=== PATIENT | male | born 1945 | race Caucasian/White ===

== ENCOUNTER 2021-06-28 13:59 | Inpatient (IN) | payer MEDICARE, OTHER ==
[~2021-06-28] VITALS: Ht 172.7 cm; Wt 66.2 kg
[2021-06-28] MEDS ORDERED: ALBUTEROL SULFATE 2.5 MG/3 ML NEBU NEB ONE (14:30)
[2021-06-28] MEDS ORDERED: BENZONATATE 100 MG CAPSULE PO ONE (14:30)
[2021-06-28] MEDS ORDERED: BENZONATATE 100 MG CAPSULE ONE (14:47)
[2021-06-28] MEDS ORDERED: LORAZEPAM 2 MG/1 ML VIAL IV ONE ×2 (15:00→16:15)
[2021-06-28] MEDS ORDERED: LORAZEPAM 2 MG/1 ML VIAL ONE ×2 (15:07→16:31)
[2021-06-28 15:11] LABS: HEMATOCRIT 41.2 % (36.7-47.1); MEAN CORPUSCULAR HEMOGLOBIN 27.6 uug (23.8-33.4); MEAN CORPUSCULAR VOLUME 84.9 fL (73.0-96.2); PLATELET COUNT (AUTO) 229 K/uL (152-348)
[2021-06-28] MEDS ORDERED: MULT-594 PO (15:16)
[2021-06-28] MEDS ORDERED: ALPR0.255 PO (15:16)
[2021-06-28] MEDS ORDERED: TRAZ-257 PO (15:16)
[2021-06-28] MEDS ORDERED: SERT100T PO (15:16)
[2021-06-28] MEDS ORDERED: LEVO25TA9 PO (15:16)
[2021-06-28] MEDS ORDERED: ALBU18HF2 IH (15:16)
[2021-06-28] MEDS ORDERED: ALBUTEROL SULFATE 2.5 MG/3 ML NEBU ONE (15:25)
[2021-06-28 15:26] LABS: ETHANOL < 3 MG/DL (0-0)
[2021-06-28] MEDS ORDERED: CEFTRIAXONE 1 G in IV DEXTROSE 5% 50 ML IV ONE (15:30)
[2021-06-28] MEDS ORDERED: AZITHROMYCIN IV 500 MG in IV DEXTROSE 5% 250 ML IV ONE (15:30)
[2021-06-28 15:32] LABS: ALANINE AMINOTRANSFERASE 20 U/L (16-63); ALKALINE PHOSPHATASE 77 U/L (50-136); ASPARTATE AMINOTRANSFERASE 31 U/L (15-37); BILIRUBIN,DIRECT 0.3 mg/dL (0.0-0.2); BILIRUBIN,TOTAL 4.9 mg/dL (0.2-1.0); CHLORIDE 102 mmol/L (98-107); CREATININE 0.9 mg/dL (0.6-1.3); POTASSIUM 3.8 mmol/L (3.5-5.1); TOTAL PROTEIN, SERUM 4.9 g/dL (6.4-8.2); UREA NITROGEN, BLOOD 21 mg/dL (7-18)
[2021-06-28 15:33] LABS: ACETAMINOPHEN < 2.0 ug/mL (10-30); CARBON DIOXIDE < 5 mmol/L (21-32); GLUCOSE 42 mg/dL (74-106)
[2021-06-28 15:40] LABS: THYROID STIMULATING HORMONE 3.876 mIU/mL (0.358-3.740)
[2021-06-28] MEDS ORDERED: AZITHROMYCIN 500MG/ D5W 250ML IVPB **ER PYXIS ONLY IV ONE (15:44)
[2021-06-28] MEDS ORDERED: DEXTROSE 50% 50 ML DISP.SYRIN IV ONE (15:45)
[2021-06-28] MEDS ORDERED: DEXTROSE 50% 50 ML DISP.SYRIN ONE (15:45)
[2021-06-28] MEDS ORDERED: CEFTRIAXONE /D5W 50ML IVPB **ER PYXIS IV ONE (15:45)
[2021-06-28 15:58] LABS: VALPROIC ACID < 3 ug/mL (50-100)
--- NOTE | 2021-06-28 16:00 | NUR ---
pt resting, family members at bedside, on O2 via nc, 4 litre, 100% sat.
[2021-06-28] MEDS ORDERED: SWABABLE VALVE TRANSFER SET EA MC ONE (16:26)
[2021-06-28] MEDS ORDERED: IOHEXOL 300MG/ML 100 ML INFUS..BTL ONE (16:26)
[2021-06-28] MEDS ORDERED: IV NORMAL SALINE 250 ML IV ONE (16:26)
[2021-06-28 18:37] LABS: CARBON DIOXIDE 27 mmol/L (21-32); CHLORIDE 104 mmol/L (98-107); GLUCOSE 206 mg/dL (74-106); POTASSIUM 3.8 mmol/L (3.5-5.1); UREA NITROGEN, BLOOD 17 mg/dL (7-18)
--- NOTE | 2021-06-28 19:51 | NUR ---
Report given to Cece ALVAREZ Tele.
[2021-06-28] MEDS ORDERED: MAGNESIUM HYDROXIDE 30 ML LIQUID UDC PO PRN (20:15)
[2021-06-28] MEDS ORDERED: ONDANSETRON 4 MG/2 ML VIAL IV PRN (20:15)
[2021-06-28] MEDS ORDERED: ACETAMINOPHEN 325 MG TABLET PO PRN (20:15)
[2021-06-28] MEDS ORDERED: Z GUARD REMEDY PASTE 57 GM TUBE TOP PRN (20:15)
[2021-06-28] MEDS ORDERED: ALBUTEROL SULFATE 8 GM HFA.AER.AD IH PRN (20:15)
[2021-06-28 21:00] VITALS: BP 115/75
[2021-06-28] MEDS ORDERED: levoFLOXacin 500 MG/D5W 100 ML ONE (21:01)
[2021-06-28] MEDS: TRAZODONE 100 MG TABLET PO SCH (21:08)
[2021-06-28] MEDS: methylPREDNISolone SOD SUCC 40 MG/ML VIAL IV SCH (21:13)
[2021-06-28] MEDS: levoFLOXacin 500 MG/D5W 500 MG in PREMIXED 1 EACH IV SCH (21:14)
[2021-06-28] MEDS ORDERED: ALBUTEROL SULFATE 2.5 MG/3 ML NEBU NEB PRN (21:45)
[2021-06-29 00:05] VITALS: BP 120/64
--- NOTE | 2021-06-29 00:11 | NUR ---
Received a 76 yr old male from ER with admitting diagnosis of COPD Exacerbation. VSS. AAOx3-4 with some periods of being forgetful at times. On 2L via nasal cannula, pulse ox 95%. No respiratory distress noted. Skin intact but some bruising on bilateral arms. #[id number] forearm heplock flushed and patent. Patient on levaquin IV and solumedrol. Denies any pain nor any discomfort. Hx of anxiety and COPD. No behavioral issues noted so far. Will monitor patient. Voiding in urinal but sometimes gets incontinent. Wear a diaper.
[2021-06-29] MEDS: LORAZEPAM 2 MG/1 ML VIAL IV PRN ×2 (01:13→09:24)
[2021-06-29] MEDS: ALBUTEROL SULFATE 2.5 MG/3 ML NEBU NEB PRN ×2 (01:23→20:25)
[2021-06-29] MEDS: IPRATROPIUM BROMIDE 0.5 MG/2.5 ML NEBU NEB PRN ×3 (01:23→20:24)
--- NOTE | 2021-06-29 01:38 | NUR ---
patient gets so confused and wanted to go home. Gets OOB and very agitated. Ativan 1 mg IV given as ordered. Trying to remove oxygen and breathing treatment. Assisted to chair and asked to relax. VSS.Will monitor patient.
[2021-06-29] MEDS ORDERED: HALOPERIDOL LACTATE 5 MG/1 ML VIAL IM ONE (02:30)
[2021-06-29] MEDS ORDERED: HALOPERIDOL LACTATE 5 MG/1 ML VIAL ONE (02:53)
--- NOTE | 2021-06-29 02:54 | NUR ---
Dr Bolden made aware of patient's agitation and behavior. Patient wanted to leave, put his clothes on, security came and talked to him but patient still confused. Haldol 2.5 mg IM ordered. Patient calm and quiet right now. Haldol put on hold at this time. Will monitor for any aggressive behavior.
[2021-06-29 04:00] VITALS: BP 97/66
[2021-06-29] MEDS: methylPREDNISolone SOD SUCC 40 MG/ML VIAL IV SCH ×3 (05:55→21:57)
[2021-06-29] MEDS: LEVOTHYROXINE SODIUM 25 MCG TABLET PO SCH (06:13)
[2021-06-29] MEDS: PANTOPRAZOLE SODIUM 40 MG TABLET.DR PO SCH (06:13)
[2021-06-29 06:37] LABS: HEMATOCRIT 37.1 % (36.7-47.1); MEAN CORPUSCULAR HEMOGLOBIN 27.2 uug (23.8-33.4); PLATELET COUNT (AUTO) 210 K/uL (152-348)
[2021-06-29 06:58] LABS: CREATININE 1.1 mg/dL (0.6-1.3); POTASSIUM 4.3 mmol/L (3.5-5.1)
[2021-06-29 07:01] LABS: MAGNESIUM 2.2 mg/dL (1.8-2.4); PHOSPHOROUS 3.7 mg/dL (2.5-4.9)
[2021-06-29] MEDS: MULTIVITAMINS,THERAPEUTIC TABLET PO SCH (09:11)
[2021-06-29] MEDS: NICOTINE 14 MG/24HR PATCH TD SCH (09:11)
[2021-06-29 12:00] VITALS: BP 99/72
[2021-06-29] MEDS ORDERED: LORAZEPAM 2 MG/1 ML VIAL IV ONE (12:45)
--- NOTE | 2021-06-29 12:57 | NUR ---
Patient is getting agitated Natalie Parham NP ordered for ativan IV 0.5 mg one time dose. Family is still with the patient.
[2021-06-29] MEDS: MEGESTROL ACETATE 20 MG TABLET PO SCH ×2 (13:49→17:29)
[2021-06-29 16:00] VITALS: BP_SYST 137; BP_SYST 97; BP_DIAS 61; BP_DIAS 65
--- NOTE | 2021-06-29 19:45 | NUR ---
Received pt sitting on a chair, verbally responsive, able to make needs known. On oxygen at 2LPM, no signs of respiratory distress noted. Denies any pain or discomfort. Safety measures initiated, call light within reach.
[2021-06-29 20:09] VITALS: BP 106/71
[2021-06-29] MEDS: TRAZODONE 100 MG TABLET PO SCH (20:16)
[2021-06-29] MEDS: TEMAZEPAM 15 MG CAPSULE PO PRN (21:32)
[2021-06-29] MEDS: levoFLOXacin 500 MG/D5W 500 MG in PREMIXED 1 EACH IV SCH (21:34)
[2021-06-30] VITALS: BP 109/77
[2021-06-30] MEDS: LORAZEPAM 2 MG/1 ML VIAL IV PRN ×2 (04:07→12:20)
[2021-06-30 04:09] VITALS: BP 105/70
[2021-06-30] MEDS: methylPREDNISolone SOD SUCC 40 MG/ML VIAL IV SCH ×3 (06:02→21:02)
[2021-06-30] MEDS: LEVOTHYROXINE SODIUM 25 MCG TABLET PO SCH (06:02)
[2021-06-30] MEDS: PANTOPRAZOLE SODIUM 40 MG TABLET.DR PO SCH (06:02)
[2021-06-30 06:30] LABS: HEMATOCRIT 39.1 % (36.7-47.1); MEAN CORPUSCULAR HEMOGLOBIN 27.1 uug (23.8-33.4); MEAN CORPUSCULAR VOLUME 85.3 fL (73.0-96.2); PLATELET COUNT (AUTO) 193 K/uL (152-348)
--- NOTE | 2021-06-30 06:33 | NUR ---
Slept through the night. Tolerated medications well. NSR on tele at 70/min. Pt woke up around 0400, agitated and confused, getting out of bed and wanting to go home. Reorientation done, repositioned properly in bed. Ativan 1mg PRN administered and tolerated well by the pt. Pt currently in bed, awake and calm. All needs attended to and met. Safety measures in place.
[2021-06-30 06:46] LABS: CREATININE 1.1 mg/dL (0.6-1.3); POTASSIUM 4.5 mmol/L (3.5-5.1)
[2021-06-30 07:19] LABS: THYROID STIMULATING HORMONE 0.463 mIU/mL (0.358-3.740)
[2021-06-30] MEDS: NICOTINE 14 MG/24HR PATCH TD SCH (08:28)
[2021-06-30] MEDS: MULTIVITAMINS,THERAPEUTIC TABLET PO SCH (08:28)
[2021-06-30] MEDS: MEGESTROL ACETATE 20 MG TABLET PO SCH ×2 (08:28→16:45)
--- NOTE | 2021-06-30 08:30 | NUR ---
PATIENT SEEN BY THE PHYSICAL THERAPIST FOR AMBULATION IN THE HALLWAY WITH THE FRONT WHEEL WALKER WITH FAIR ENDURANCE WAS SOMEWHAT SHORT OF BREATH AFTER THE WALKING AND WAS PLACED ON SUPPLEMENTAL O2 AT 2L/M BY N/C
--- NOTE | 2021-06-30 09:40 | NUR ---
CALLED DR MANSFIELD OFFICE AND LEFT HER A VOICE MESSAGE RE PATIENT NEEDS PSYCH CONSULT I ALSO FAXED THE FACE SHEET TO [facility] AND NOTIFIED THE [facility] NURSE KYUNG.
--- NOTE | 2021-06-30 09:44 | NUR ---
UP REMOVED HIS GOULD AND WALKING UNSURE OF HIS DESTINATION ALERT BUT DISORIENTED ASSISTED BACK INTO HIS ROOM AND SEATED HIM ON THE CHAIR AND O2 REAPPLIED PATIENT ENCOURAGED TO CALL FOR HELP TO PREVENT FALL HE HAS EXPRESSED UNDERSTANDING AT THIS TIME BUT WILL CONTINUE TO OBSERVE AND PROVIDE SAFE AND THERAPEUTIC ENVIRONMENT AT ALL TIMES. Addendum: 06/30/21 at 1204 by PRIYANK BARROSO RN ERROR PATIENT HAS NO GOULD HE REMOVED HIS O2 CANULA
[2021-06-30 12:00] VITALS: BP 132/76
--- NOTE | 2021-06-30 12:20 | NUR ---
PATIENT IS GETTING AGITATED ATTEMPTING TO LEAVE DESPITE THE FACT THAT HIS DAUGHTER AND ARE BOTH HERE AND VISITING UNABLE TO REDIRECT MEDICATED WITH ATIVAN ORDERED MADE COMFORTABLE WILL CONTINUE TO OBSERVE.
[2021-06-30] MEDS: FERROUS SULFATE 325 MG TABEC PO SCH (13:25)
--- NOTE | 2021-06-30 15:15 | NUR ---
DR CASTILLO HERE TO SEE AND EXAMINE PATIENT SPOKE WITH PATIENTS DAUGHTER AND AT LENGTH WITH NO NEW ORDERS AT THIS TIME.
[2021-06-30 16:30] VITALS: BP 110/81
--- NOTE | 2021-06-30 18:00 | NUR ---
SEEN BY BHAVANA ANXIOUS TO GO HOME BHAVANA SPOKE WITH PATIENT AND HIS FAMILY AND ENCOURAGED HIM TO STAY TONITE IN ORDER TO BE ABLE TO CONTINUE HIS ANTIBIOTICS AND HOS STEROIDS PATIENT IS NOT AGREEING TO THIS BUT FOR NOW HE WILL STAY FOR HIS ANTIBIOTICS TONITE.
[2021-06-30] MEDS: IPRATROPIUM BROMIDE 0.5 MG/2.5 ML NEBU NEB PRN (19:22)
[2021-06-30] MEDS: ALBUTEROL SULFATE 2.5 MG/3 ML NEBU NEB PRN (19:23)
--- NOTE | 2021-06-30 19:30 | NUR ---
Received pt in bed, awake and verbally responsive. LYTTON. No signs of acute distress. Denies any pain or discomfort. NSR on tele. Discussed plan of care with family at bedside. Family and Pt agreeable. Per , no VS to be checked after 1999. MD aware. Safety measures initiated, call light within reach.
[2021-06-30] MEDS: TRAZODONE 100 MG TABLET PO SCH (20:28)
[2021-06-30] MEDS: SENNOSIDES 1 TABLET PO SCH (20:28)
[2021-06-30 21:02] VITALS: BP 114/77
[2021-06-30] MEDS: levoFLOXacin 500 MG/D5W 500 MG in PREMIXED 1 EACH IV SCH (21:02)
[2021-06-30] MEDS: TEMAZEPAM 15 MG CAPSULE PO PRN (22:44)
[2021-07-01 00:06] VITALS: BP 127/84
[2021-07-01] MEDS: methylPREDNISolone SOD SUCC 40 MG/ML VIAL IV SCH ×2 (05:48→20:56)
[2021-07-01] MEDS: LEVOTHYROXINE SODIUM 25 MCG TABLET PO SCH (06:05)
[2021-07-01] MEDS: PANTOPRAZOLE SODIUM 40 MG TABLET.DR PO SCH (06:05)
--- NOTE | 2021-07-01 06:09 | NUR ---
Pt slept intermittently through the night, no significant change in condition noted. Due medications administered and tolerated well. Assisted with hygiene and repositioning in bed as needed. Safety measures maintained at all times. All needs attended to and met.
[2021-07-01 06:35] LABS: HEMATOCRIT 40.2 % (36.7-47.1); MEAN CORPUSCULAR HEMOGLOBIN 27.3 uug (23.8-33.4); MEAN CORPUSCULAR VOLUME 85.6 fL (73.0-96.2); PLATELET COUNT (AUTO) 208 K/uL (152-348)
[2021-07-01 06:50] LABS: POTASSIUM 4.6 mmol/L (3.5-5.1)
--- NOTE | 2021-07-01 07:30 | NUR ---
PATIENT IS AWAKE ON THE CHAIR AWAKE ALERT TO SELF BUT IS CONFUSED AND DISORIENTED NEEDING CONSTANT REDIRECTION ALL NEEDS ANTICIPATED AND SATISFIED.REMAIN ON O2 WITH NO SHORTNESS OF BREATH AT THIS TIME TELE IS SR MADE COMFORTABLE WILL CONTINUE TO OBSERVE.
[2021-07-01] MEDS: MULTIVITAMINS,THERAPEUTIC TABLET PO SCH (08:26)
[2021-07-01] MEDS: NICOTINE 14 MG/24HR PATCH TD SCH (08:27)
[2021-07-01] MEDS: MEGESTROL ACETATE 20 MG TABLET PO SCH ×2 (08:27→16:18)
[2021-07-01] MEDS: FERROUS SULFATE 325 MG TABEC PO SCH (08:27)
[2021-07-01] MEDS: BACITRACIN/POLYMYXIN B OINT 15 GM TUBE TOP SCH (09:12)
--- NOTE | 2021-07-01 10:25 | NUR ---
LEWIS HERE AND SEEN PATIENT WITH NO NEW ORDERS AT THIS TIME.
[2021-07-01] MEDS: LORAZEPAM 2 MG/1 ML VIAL IV PRN (10:28)
--- NOTE | 2021-07-01 10:32 | NUR ---
FAMILY AT THE BEDSIDE AND STATED THAT PATIENT IS GETTING MORE AGITATED AND REQUESTED FOR HIM TO GET SOME ATIVAN ORDERED ATIVAN GIVEN AT 1028 PATIENT IS CURRENTLY SITTING UP ON THE CHAIR IN HIS ROOM ALERT TO SELF BUT VERY CONFUSED WILL CONTINUE TO OBSERVE.
--- NOTE | 2021-07-01 11:00 | NUR ---
SEEN BY THE PHYSICAL THERAPY FOR AMBULATION WITH THE FRONT WHEEL WALKER WITH GOOD ENDURANCE AND ASSISTED BACK TO BED.
[2021-07-01 11:53] VITALS: BP 114/80
[2021-07-01] MEDS ORDERED: ALBUTEROL SULFATE 2.5 MG/3 ML NEBU NEB PRN (14:58)
[2021-07-01 15:56] VITALS: BP 124/76
--- NOTE | 2021-07-01 18:00 | NUR ---
RESTING ON THE CHAIR WITH O2 REMOVES OFF AND ON WITH NO SHORTNESS OF BREATH AT THIS TIME WILL CONTINUE TO OBSERVE
[2021-07-01 20:06] VITALS: BP 116/85
[2021-07-01] MEDS: TEMAZEPAM 15 MG CAPSULE PO PRN (20:56)
[2021-07-01] MEDS: TRAZODONE 100 MG TABLET PO SCH (20:56)
[2021-07-01] MEDS: SENNOSIDES 1 TABLET PO SCH (20:56)
--- NOTE | 2021-07-01 21:00 | NUR ---
Patient in bed, alert and verbally responsive. Patient is pleasant and cooperative with care, but has poor safety judgment and forgetful. Patient received due medications. Fall and safety precautions observed. Will continue to monitor patient.
[2021-07-01] MEDS: levoFLOXacin 500 MG/D5W 500 MG in PREMIXED 1 EACH IV SCH (21:01)
[2021-07-02] MEDS: LEVOTHYROXINE SODIUM 25 MCG TABLET PO SCH (06:02)
[2021-07-02] MEDS: PANTOPRAZOLE SODIUM 40 MG TABLET.DR PO SCH (06:02)
[2021-07-02 06:30] LABS: HEMATOCRIT 43.6 % (36.7-47.1); MEAN CORPUSCULAR HEMOGLOBIN 27.1 uug (23.8-33.4); MEAN CORPUSCULAR VOLUME 85.1 fL (73.0-96.2); PLATELET COUNT (AUTO) 209 K/uL (152-348)
--- NOTE | 2021-07-02 06:30 | NUR ---
Patient in bed, alert and responsive. Received due meds. All needs attended. Patient with episodes of impulsiveness. Fall and safety precautions closely observed.
[2021-07-02 06:42] LABS: POTASSIUM 4.4 mmol/L (3.5-5.1)
[2021-07-02 07:04] LABS: MAGNESIUM 2.3 mg/dL (1.8-2.4); PHOSPHOROUS 3.9 mg/dL (2.5-4.9)
--- NOTE | 2021-07-02 07:30 | NUR ---
RECEIVED PATIENT IN BED AWAKE ALERT SOMEWHAT DISORIENTED COOPERATIVE ALL NEEDS ANTICIPATED AND SATISFIED HE IS ON O2 AT 2L/M WITH NO SOB AT THIS TIME TELE IS SR CALL LIGHTS AND ALL HIS PERSONAL BELONGINGS ARE WITHIN EASY REACH MADE COMFORTABLE AND WILL CONTINUE TO OBSERVE.
[2021-07-02] MEDS: methylPREDNISolone SOD SUCC 40 MG/ML VIAL IV SCH ×2 (08:34→20:58)
[2021-07-02] MEDS: MEGESTROL ACETATE 20 MG TABLET PO SCH ×2 (08:34→17:05)
[2021-07-02] MEDS: NICOTINE 14 MG/24HR PATCH TD SCH (08:34)
[2021-07-02] MEDS: FERROUS SULFATE 325 MG TABEC PO SCH (08:34)
[2021-07-02] MEDS: MULTIVITAMINS,THERAPEUTIC TABLET PO SCH (08:34)
[2021-07-02] MEDS: BACITRACIN/POLYMYXIN B OINT 15 GM TUBE TOP SCH (08:35)
[2021-07-02 09:53] LABS: ABG BASE EXCESS 0.2 mmol/L; ABG HCO3 24.5 mmol/L; ABG PCO2 38.6 mmHg (35.0-45.0); ABG PO2 69.5 mmHg (75.0-100.0); ABG SITE RIGHT BRACHIAL; ABG TOTAL HEMOGLOBIN 15.1 G/dL (13.5-18.0); COHb 1.3 % (0.5-1.5); MetHb 0.2 % (0.0-1.5); O2Hb 93.1 % (94.0-97.0); VENT MODE ROOM AIR
[2021-07-02] MEDS: LORAZEPAM 2 MG/1 ML VIAL IV PRN ×2 (10:28→23:52)
--- NOTE | 2021-07-02 10:28 | NUR ---
getting agitated and very confused at this time unable to redirect medicated with ativan as ordered made comfortable will continue to observe.
[2021-07-02 11:42] VITALS: BP 124/86
--- NOTE | 2021-07-02 14:00 | NUR ---
PATIENT SEEN AND EXAMINED BY JEANINE COON WITH NO NEW ORDERS HE IS SITTING UP ON THE CHAIR WITH HIS AT HIS BEDSIDE NOT IN DISTRESS AT THIS TIME.
[2021-07-02 15:30] VITALS: BP 114/82
--- NOTE | 2021-07-02 18:00 | NUR ---
WAS IN BED TAKING A NAP FOR ABOUT 2 HOURS BUT ASSISTED INTO THE CHAIR FOR DINNER FED SELF WITH SET UP WITH FAIR APPETITE CALM AND COOPERATIVE AT THIS TIME WILL CONTINUE TO OBSERVE.
[2021-07-02 20:25] LABS: *OCCULT BLOOD STOOL NEGATIVE (NEGATIVE)
[2021-07-02] MEDS: TRAZODONE 100 MG TABLET PO SCH (20:55)
[2021-07-02] MEDS: SENNOSIDES 1 TABLET PO SCH (20:58)
[2021-07-02] MEDS: TEMAZEPAM 15 MG CAPSULE PO PRN (20:59)
--- NOTE | 2021-07-02 20:59 | NUR ---
PATIENT IS AWAKE AND STATED NOT SLEEPY SO RESTORIL GIVEN ORDERED MADE COMFORTABLE IN BED WILL CONTINUE TO OBSERVE.
[2021-07-02] MEDS: levoFLOXacin 500 MG/D5W 500 MG in PREMIXED 1 EACH IV SCH (21:06)
[2021-07-02] MEDS: IPRATROPIUM BROMIDE 0.5 MG/2.5 ML NEBU NEB PRN (21:12)
[2021-07-02 22:21] VITALS: BP 118/81
--- NOTE | 2021-07-02 23:52 | NUR ---
PATIENT IS STILL AWAKE NOT SLEEPING TRYING TO GET OUT OF BED SEEN TRYING TO HUB LEAD SOMETHING FROM THE FLOOR STRETCHING OVER THE SIDE RAILS UNABLE TO REDIRECT AT RISKS FOR FALL MEDICATED WITH ATIVAN ORDERED WILL CONTINUE TO OBSERVE.
--- NOTE | 2021-07-03 01:33 | NUR ---
AWAKE NOTED INCONTINENT OF URINE PJ CHANGED KEPT CLEAN AND DRY ENCOURAGED TO GET SOME SLEEP.
[2021-07-03 04:21] VITALS: BP 110/64
[2021-07-03] MEDS: LEVOTHYROXINE SODIUM 25 MCG TABLET PO SCH (06:01)
[2021-07-03] MEDS: PANTOPRAZOLE SODIUM 40 MG TABLET.DR PO SCH (06:01)
--- NOTE | 2021-07-03 06:25 | NUR ---
PATIENT IS AWAKE AT THIS TIME AND ASSISTED INTO THE CHAIR ALERT AND VERBALLY RESPONSIVE BUT REMAINS DISORIENTED ON O2 WITH NO SOB CALL LIGHTS WITHIN EASY REACH MADE COMFORTABLE WILL CONTINUE TO OBSERVE.
[2021-07-03 07:17] LABS: HEMATOCRIT 44.6 % (36.7-47.1); MEAN CORPUSCULAR HEMOGLOBIN 27.4 uug (23.8-33.4); MEAN CORPUSCULAR VOLUME 85.5 fL (73.0-96.2); PLATELET COUNT (AUTO) 203 K/uL (152-348)
[2021-07-03 07:40] LABS: CREATININE 1.1 mg/dL (0.6-1.3); POTASSIUM 4.7 mmol/L (3.5-5.1)
[2021-07-03 08:40] VITALS: BP 117/57
[2021-07-03] MEDS ORDERED: methylPREDNISolone SOD SUCC 40 MG/ML VIAL IV SCH (09:00)
[2021-07-03] MEDS: MULTIVITAMINS,THERAPEUTIC TABLET PO SCH (09:04)
[2021-07-03] MEDS: MEGESTROL ACETATE 20 MG TABLET PO SCH (09:04)
[2021-07-03] MEDS: NICOTINE 14 MG/24HR PATCH TD SCH (09:04)
[2021-07-03] MEDS: FERROUS SULFATE 325 MG TABEC PO SCH (09:04)
[2021-07-03] MEDS: BACITRACIN/POLYMYXIN B OINT 15 GM TUBE TOP SCH (09:06)
[2021-07-03 11:42] VITALS: BP 100/69
[2021-07-03] MEDS ORDERED: LEVO500T90 PO (11:49)
[2021-07-03] MEDS ORDERED: ALPR0.255 PO (11:49)
[2021-07-03] MEDS ORDERED: PRED20TA PO (11:49)
[2021-07-03] MEDS: LORAZEPAM 2 MG/1 ML VIAL IV PRN (12:27)
--- NOTE | 2021-07-03 12:30 | NUR ---
PT WAS FEELING ANXIOUS AND AT BEDSIDE REQUESTED ATIVAN. WENT IN TO ADMINISTER BUT SAID HE WAS FEELING BETTER AND DOES NOT WANT IT AT THIS TIME. 1MG WASTED IN PYXIS AND ANOTHER 1 MG WASTED IN TRASH. MEDICATION NOT GIVEN TO PT.
--- NOTE | 2021-07-03 12:55 | NUR ---
RECEIVED CHANGE OF SHIFT REPORT. PT RESTING IN CHAIR AT BEDSIDE. PT AWARE TO CALL FOR HELP WHEN GETTING UP. PT HAS SCRATCHES ON KEERTHI LOWER ARMS. PT ON TELE MONITOR, NSR, PT O2 DEPENDANT, FALL RISK MEASURES IN PLACE. LAST BM 07/03. WILL CONTINUE TO MONITOR.
--- NOTE | 2021-07-03 14:40 | NUR ---
PT DISCHARGED WITH ALL BELONGINGS, PT AMBULATORY WITH ASSISTANCE, TAKEN HOME VIA PRIVATE CAR WITH . PT HAS SCRATCHES ON KEERTHI LOWER ARMS AND SKIN TEARS, PHOTOS TAKEN AND IN CHART. PT AND EDUCATED ON WOUND CARE AND VERBALIZED UNDERSTANDING. PT ON 2L O2 VIA NC. VITALS STABLE. EXIT CARE AND EDUCATION INFORMATION GIVEN REGARDING DIAGNOSIS AND FOLLOW UP APPT.
[2021-07-04 17:05] LABS: *IMMUNOGLOBULIN G, SERUM 1115; IMMUNOGLOBULIN A, SERUM 346; IMMUNOGLOBULIN M, SERUM 50
[2021-07-04 17:06] LABS: ALBUMIN 3.3
[2021-07-04 17:07] LABS: ALPHA-1-GLOBULIN 0.3; ALPHA-2-GLOBULIN 0.9; BETA GLOBULIN 1.2; GAMMA GLOBULIN 0.8; M-SPIKE Not Observed
[2021-07-04 17:08] LABS: GLOBULIN, TOTAL 3.3
== END 2021-07-03 14:25 | disposition home health service (06) | DRG 177 ==
LOC: ER 13:59 → MEDSURG3 20:00 → TELE3 21:30
PROVIDERS: ADMIT Nurse Practitioner Acute Care; ATTEND Nurse Practitioner Family
DX: J15.6 Pneumonia due to other Gram-negative bacteria (principal); J96.21 Acute and chronic respiratory failure with hypoxia; G93.41 Metabolic encephalopathy; J44.1 Chronic obstructive pulmonary disease with (acute) exacerbation; J90 Pleural effusion, not elsewhere classified; J98.11 Atelectasis; F05 Delirium due to known physiological condition; J91.8 Pleural effusion in other conditions classified elsewhere; J44.0 Chronic obstructive pulmonary disease with (acute) lower respiratory infection; F17.210 Nicotine dependence, cigarettes, uncomplicated; D64.9 Anemia, unspecified; E03.9 Hypothyroidism, unspecified; F39 Unspecified mood [affective] disorder; F41.9 Anxiety disorder, unspecified; G47.00 Insomnia, unspecified; Z71.6 Tobacco abuse counseling; F03.90 Unspecified dementia, unspecified severity, without behavioral disturbance, psychotic disturbance, mood disturbance, and anxiety; E04.1 Nontoxic single thyroid nodule; Z79.890 Hormone replacement therapy; Z80.8 Family history of malignant neoplasm of other organs or systems; Z99.81 Dependence on supplemental oxygen; D72.829 Elevated white blood cell count, unspecified; Z20.822 Contact with and (suspected) exposure to COVID-19
CPT/HCPCS: 36415; 36600; 70030-TC; 71045; 71275; 80164; 82747; 82784; 83550; 83605; 83735; 84100; 84155; 84165; 84443; 85014; 85025; 85730; 86334; 86480; 86850; 86900; 86901; 87040; 93005; 94640; 94664; 97161; A4663; G0378; G0480; J0456; J0696; J1630; J1956; J2060; J2920; J3490; J3590; J7040; J7050; Q9967

== ENCOUNTER 2021-08-03 11:55 | Emergency (ER) | payer OTHER ==
[~2021-08-03] VITALS: Ht 170.2 cm; Wt 59.9 kg
[~2021-08-03 11:55] MED LIST: ALBU18HF2 IH; ALPR0.255 PO; LEVO25TA9 PO; LEVO500T90 PO; MULT-594 PO; PRED20TA PO; SERT100T PO; TRAZ-257 PO
--- NOTE | 2021-08-03 12:00 | NUR ---
Patient brought in by [facility] because he slipped out of his wheelchair and landing on the floor
--- NOTE | 2021-08-03 12:05 | NUR ---
at bedside for assessment
[2021-08-03 12:41] LABS: HEMATOCRIT 41.4 % (36.7-47.1); MEAN CORPUSCULAR HEMOGLOBIN 28.8 uug (23.8-33.4); MEAN CORPUSCULAR VOLUME 87.2 fL (73.0-96.2); PLATELET COUNT (AUTO) 194 K/uL (152-348)
[2021-08-03 12:48] LABS: BILIRUBIN,DIRECT 0.2 mg/dL (0.0-0.2); BILIRUBIN,TOTAL 0.8 mg/dL (0.2-1.0); CREATININE 0.8 mg/dL (0.6-1.3); POTASSIUM 5.1 mmol/L (3.5-5.1); TOTAL PROTEIN, SERUM 7.3 g/dL (6.4-8.2)
[2021-08-03] MEDS ORDERED: ARIP5TAB10 PO (13:24)
[2021-08-03] MEDS ORDERED: SERT25TA PO (13:24)
[2021-08-03] MEDS ORDERED: LEVO75TA7 PO (13:24)
[2021-08-03] MEDS ORDERED: ZOLP5TAB2 PO (13:24)
--- NOTE | 2021-08-03 14:48 | NUR ---
PT WAS D/C'd TO HOME AFTER DR CANNON EVALUATION. D/C INSTRUCTIONS GIVEN TO THE PT AND TO HIS BY DR CANNON.
[2021-08-03 14:49] VITALS: BP 126/79
== END 2021-08-03 14:49 | disposition home or self-care (01) ==
LOC: ER 11:55
DX: Z04.3 Encounter for examination and observation following other accident (principal); M54.5 Low back pain; M54.2 Cervicalgia; Z87.01 Personal history of pneumonia (recurrent); Z99.3 Dependence on wheelchair; R91.8 Other nonspecific abnormal finding of lung field; M48.02 Spinal stenosis, cervical region; M48.061 Spinal stenosis, lumbar region without neurogenic claudication; F17.200 Nicotine dependence, unspecified, uncomplicated; J44.9 Chronic obstructive pulmonary disease, unspecified; F32.9 Major depressive disorder, single episode, unspecified; F41.9 Anxiety disorder, unspecified; J90 Pleural effusion, not elsewhere classified; K80.20 Calculus of gallbladder without cholecystitis without obstruction; E04.1 Nontoxic single thyroid nodule; Z79.890 Hormone replacement therapy
CPT/HCPCS: 36415; 70450; 72125; 72131; 85025; 85730; A4663

== ENCOUNTER 2022-05-09 00:42 | Inpatient (IN) | payer OTHER ==
[~2022-05-09] VITALS: Ht 175.3 cm; Wt 65.8 kg
[~2022-05-09 00:42] MED LIST changes: +ARIP5TAB10 PO; -LEVO25TA9 PO; -LEVO500T90 PO; +LEVO75TA7 PO; -PRED20TA PO; -SERT100T PO; +SERT25TA PO; -TRAZ-257 PO; +ZOLP5TAB2 PO
--- NOTE | 2022-05-09 01:05 | NUR ---
BIB [facility] for c/o SOB. Brought in on 15L NRM, titrated to 2L NC, satting 94%. Pt has hx of COPD. Denies chest pain. Able to make needs known. Acute distress noted. RT called to administer nebulizer treatment.
[2022-05-09 01:15] LABS: HEMATOCRIT 37.7 % (36.7-47.1); MEAN CORPUSCULAR HEMOGLOBIN 27.7 uug (23.8-33.4); MEAN CORPUSCULAR VOLUME 84.2 fL (73.0-96.2); PLATELET COUNT (AUTO) 216 K/uL (152-348)
[2022-05-09] MEDS ORDERED: ALBUTEROL SULFATE 2.5 MG/3 ML NEBU NEB ONE (01:15)
[2022-05-09] MEDS ORDERED: ALBUTEROL SULFATE 2.5 MG/3 ML NEBU ONE (01:15)
--- NOTE | 2022-05-09 01:23 | NUR ---
RT at bedside administering breathing treatment. Pt tolerating well.
[2022-05-09] MEDS ORDERED: FAMO-132 PO (01:29)
[2022-05-09] MEDS ORDERED: MAGN400O6 PO (01:29)
[2022-05-09] MEDS ORDERED: LORA2VIA33 PO (01:29)
[2022-05-09] MEDS ORDERED: DOCU100C36 PO (01:29)
[2022-05-09] MEDS ORDERED: HYDR-3974 PO (01:29)
[2022-05-09] MEDS ORDERED: NICO-780 TD (01:29)
[2022-05-09] MEDS ORDERED: ACET160E36 PO (01:29)
[2022-05-09] MEDS ORDERED: AZITHROMYCIN IV 500 MG in IV DEXTROSE 5% 250 ML IV ONE (01:30)
[2022-05-09] MEDS ORDERED: CEFTRIAXONE 1 G in IV DEXTROSE 5% 50 ML IV ONE (01:30)
--- NOTE | 2022-05-09 01:40 | NUR ---
[facility] called to page Dr. Marc
--- NOTE | 2022-05-09 01:42 | NUR ---
SPOKE WITH MEME, STATES THAT PT WAS STAYING AT [facility].
[2022-05-09 01:47] LABS: ALANINE AMINOTRANSFERASE 13 U/L (16-63); ALKALINE PHOSPHATASE 61 U/L (50-136); ASPARTATE AMINOTRANSFERASE 14 U/L (15-37); BILIRUBIN,DIRECT 0.2 mg/dL (0.0-0.2); BILIRUBIN,TOTAL 0.7 mg/dL (0.2-1.0); CARBON DIOXIDE 28 mmol/L (21-32); CHLORIDE 102 mmol/L (98-107); CREATININE 0.7 mg/dL (0.6-1.3); GLUCOSE 127 mg/dL (74-106); POTASSIUM 4.1 mmol/L (3.5-5.1); TOTAL PROTEIN, SERUM 6.5 g/dL (6.4-8.2); UREA NITROGEN, BLOOD 8 mg/dL (7-18)
[2022-05-09] MEDS ORDERED: CEFTRIAXONE /D5W 50ML IVPB **ER PYXIS IV ONE (01:55)
[2022-05-09] MEDS ORDERED: AZITHROMYCIN 500MG/ D5W 250ML IVPB **ER PYXIS ONLY IV ONE (01:55)
[2022-05-09] MEDS ORDERED: HYDROCODONE/APAP 5-325MG TABLET ONE ×2 (04:58→21:21)
[2022-05-09] MEDS ORDERED: HYDROCODONE/APAP 5-325MG TABLET PO ONE (05:00)
[2022-05-09] MEDS ORDERED: TRAZ-257 PO (05:29)
[2022-05-09] MEDS ORDERED: TEMA15CA5 PO (05:29)
[2022-05-09] MEDS ORDERED: ONDANSETRON 4 MG/2 ML VIAL IV PRN (05:30)
[2022-05-09] MEDS ORDERED: MAGNESIUM HYDROXIDE 30 ML LIQUID UDC PO PRN (05:30)
[2022-05-09] MEDS ORDERED: ACETAMINOPHEN 325 MG TABLET PO PRN (05:30)
[2022-05-09] MEDS ORDERED: REMEDY ESSENTIAL ZINC PASTE 113 GM TP PRN (05:30)
[2022-05-09] MEDS ORDERED: SERT50TA PO (05:38)
[2022-05-09] MEDS ORDERED: ENOXAPARIN SODIUM 40 MG/0.4 ML DISP.SYRIN SQ ONE (06:22)
[2022-05-09] MEDS ORDERED: MEROPENEM 500MG/NS 50ML PB ***ER PYXIS ONLY IV ONE ×3 (06:22→21:43)
[2022-05-09] MEDS: ENOXAPARIN SODIUM 40 MG/0.4 ML DISP.SYRIN SQ SCH (06:34)
[2022-05-09] MEDS: MEROPENEM 0.5 G in IV NORMAL SALINE 50 ML IV SCH ×3 (06:35→22:00)
--- NOTE | 2022-05-09 07:21 | NUR ---
Report given to Amalia ALVAREZ
[2022-05-09] MEDS ORDERED: VANCOMYCIN IV 1,000 MG in IV DEXTROSE 5% 250 ML IV SCH (08:00)
[2022-05-09] MEDS ORDERED: LORAZEPAM 2 MG/1 ML VIAL IV PRN ×2 (09:00→18:30)
[2022-05-09] MEDS ORDERED: LORAZEPAM 2 MG/1 ML VIAL ONE (09:02)
[2022-05-09] MEDS ORDERED: VANCOMYCIN IV 200 ML ONE (09:02)
[2022-05-09] MEDS: VANCOMYCIN IV 1,000 MG in IV DEXTROSE 5% 250 ML IV SCH (11:20)
[2022-05-09] MEDS ORDERED: DOCU-141 PO (13:28)
[2022-05-09] MEDS ORDERED: ALBU2.5V38 IH (13:37)
--- NOTE | 2022-05-09 19:20 | NUR ---
Brief report given to staff assistant Deedee who had pt last night and is familiar with him. Sbar method used, all questions answered, nothing pending. Pt awaiting room assignment. no s/sxof distress present.
--- NOTE | 2022-05-09 20:00 | NUR ---
Pt going to room 308
[2022-05-09] MEDS ORDERED: TRAZODONE 100 MG TABLET ONE (20:26)
[2022-05-09] MEDS: TRAZODONE 100 MG TABLET PO SCH (20:36)
--- NOTE | 2022-05-09 20:40 | NUR ---
Pt resting in bed. No distress noted. On 2L NC satting 94%. C/o back pain. Paged Floridalma Bolden NP for order for [place] per patient's request.
[2022-05-09] MEDS: HYDROCODONE/APAP 5-325MG TABLET PO PRN (22:00)
--- NOTE | 2022-05-09 22:10 | NUR ---
Report given to Carolyne ALVAREZ
--- NOTE | 2022-05-09 22:35 | NUR ---
Received patient as ER admission per kathy, alert, not in labored breathing, oriented x3, with episode of confusion at times. Skin assessment done, pictures taken and attached to chart, routine admission care done, safety precautions provided, call light placed within reach.
[2022-05-09] MEDS: TEMAZEPAM 15 MG CAPSULE PO SCH (23:00)
--- NOTE | 2022-05-09 23:09 | NUR ---
Pt. admitted to tele room 308, under care of Dr. Mrac Belongs List completed. Transported to floor in stable condition.
[2022-05-09] MEDS: ALBUTEROL SULFATE 1.25 MG/3 ML NEBU NEB PRN (23:27)
[2022-05-09] MEDS: IPRATROPIUM BROMIDE 0.5 MG/2.5 ML NEBU NEB PRN (23:27)
[2022-05-09 23:57] VITALS: BP 92/62
[2022-05-10 04:55] VITALS: BP 94/65
[2022-05-10] MEDS ORDERED: VANCOMYCIN 1000 MG VIAL ONE (05:19)
[2022-05-10] MEDS ORDERED: MEROPENEM 500 MG VIAL IV ONE (05:20)
[2022-05-10] MEDS: VANCOMYCIN IV 1,000 MG in IV DEXTROSE 5% 250 ML IV SCH (05:27)
[2022-05-10] MEDS: LEVOTHYROXINE SODIUM 75 MCG TABLET PO SCH (06:19)
--- NOTE | 2022-05-10 06:32 | NUR ---
Patient able to slept intermittently, not in labored breathing. still with oxygen at 2L via NC, For continuity of care.
[2022-05-10 07:07] LABS: HEMATOCRIT 36.1 % (36.7-47.1); MEAN CORPUSCULAR HEMOGLOBIN 27.3 uug (23.8-33.4); MEAN CORPUSCULAR VOLUME 83.3 fL (73.0-96.2); PLATELET COUNT (AUTO) 219 K/uL (152-348)
[2022-05-10 07:28] LABS: CREATININE 0.7 mg/dL (0.6-1.3); MAGNESIUM 2.2 mg/dL (1.8-2.4); PHOSPHOROUS 4.3 mg/dL (2.5-4.9); POTASSIUM 3.8 mmol/L (3.5-5.1)
[2022-05-10] MEDS: MEROPENEM 0.5 G in IV NORMAL SALINE 50 ML IV SCH (07:35)
[2022-05-10] MEDS: FAMOTIDINE 20 MG TABLET PO SCH (09:06)
[2022-05-10] MEDS: MULTIVITAMINS,THERAPEUTIC TABLET PO SCH (09:07)
[2022-05-10] MEDS: SERTRALINE HCL 50 MG TABLET PO SCH (09:07)
[2022-05-10] MEDS: NICOTINE 7 MG/24HR PATCH TD SCH (09:10)
[2022-05-10] MEDS: ENOXAPARIN SODIUM 40 MG/0.4 ML DISP.SYRIN SQ SCH (09:13)
[2022-05-10] MEDS ORDERED: NORMAL SALINE NASAL 45 ML BOTTLE NS PRN (09:30)
[2022-05-10] MEDS: LORAZEPAM 1 MG TABLET PO PRN ×4 (10:11→23:17)
--- NOTE | 2022-05-10 11:04 | NUR ---
Patient refused DVT pump due to feeling uncomfortable wearing them and said he can use Lovenox alone without to DVT pump
[2022-05-10] MEDS: AMOXICILLIN-CLAVUL 500-125MG TABLET PO SCH ×2 (12:20→20:59)
--- NOTE | 2022-05-10 12:59 | NUR ---
patient complained of pain in both of his sheens. A warm dry compress was offered to him, patient agreed to that before having pain relieving medication. Will continue to monitor
[2022-05-10] MEDS: ALBUTEROL SULFATE 1.25 MG/3 ML NEBU NEB PRN ×4 (14:51→23:38)
[2022-05-10] MEDS: IPRATROPIUM BROMIDE 0.5 MG/2.5 ML NEBU NEB PRN ×4 (14:51→23:38)
[2022-05-10] MEDS ORDERED: LORAZEPAM 1 MG TABLET PO PRN (15:00)
--- NOTE | 2022-05-10 15:38 | NUR ---
patient asked for Ativan to give him q4/hr. at bedside. Patient is having a breathing treatment as he was short of breath. Right now no distress noted, patient looks calm. said patient coughed out a lot of phlegm. I came to take sputum culture but the patient didn't cough anymore. The will help the patient to collect sputum when patient coughs. will continue to monitor.
[2022-05-10] MEDS: HYDROCODONE/APAP 5-325MG TABLET PO PRN (17:07)
--- NOTE | 2022-05-10 19:25 | NUR ---
RECEIVED PATIENT IN BED. AAOX4. ABLE TO MAKE NEEDS KNOWN. ON TELEMONITOR, SHOWING SINUS RHYTHM. ON 3L O2, SATURATING AT 98%. IV ACCESS PATENT AND INTACT. PT URINATES WITH USE OF URINAL. SAFETY PRECAUTIONS IN PLACE. CALL LIGHT BUTTON WITHIN REACH. MONITORED CLOSELY.
--- NOTE | 2022-05-10 19:48 | NUR ---
Sputum sent down to lab.
[2022-05-10 20:13] VITALS: BP 99/69
[2022-05-10] MEDS: TRAZODONE 100 MG TABLET PO SCH (20:59)
[2022-05-10] MEDS: TEMAZEPAM 15 MG CAPSULE PO SCH (21:06)
[2022-05-10 21:09] VITALS: BP 115/81
--- NOTE | 2022-05-10 23:20 | NUR ---
PATIENT COMPLAINS OF BEING ANXIOUS, PRN ATIVAN GIVEN ORDERED. PT MONITORED CLOSELY.
[2022-05-11 00:08] VITALS: BP 92/62
[2022-05-11] MEDS: IPRATROPIUM BROMIDE 0.5 MG/2.5 ML NEBU NEB PRN ×3 (03:21→13:31)
[2022-05-11] MEDS: ALBUTEROL SULFATE 1.25 MG/3 ML NEBU NEB PRN ×3 (03:21→13:31)
[2022-05-11] MEDS: HYDROCODONE/APAP 5-325MG TABLET PO PRN (04:01)
[2022-05-11 04:35] VITALS: BP 98/68
[2022-05-11] MEDS: LEVOTHYROXINE SODIUM 75 MCG TABLET PO SCH (06:05)
[2022-05-11 06:34] VITALS: BP 99/71
--- NOTE | 2022-05-11 06:35 | NUR ---
PATIENT SLEPT THROUGH THE NIGHT, WITH EPISODES OF PRODUCTIVE PHLEGM. ON TELE MONITOR, SHOWING SINUS RHYTHM WITH HR 70BPM. ON 3L O2, SATURATING AT 96%. PT NOTED TO HAVE EPISODES OF HYPOTENSION, ELEVATED FOOT OF THE BED AND ENCOURAGED PATIENT TO INCREASE FLUID INTAKE. PT VERBALIZED UNDERSTANDING. WOUND ON R FOREARM NOTED, CLEANSE WITH NORMAL SALINE, PAT DRY AND COVERED WITH GAUZE. ALL NEEDS ATTENDED TO AND MET. SAFETY PRECAUTIONS MAINTAINED. WILL ENDORSE TO DAY SHIFT.
[2022-05-11 07:16] LABS: HEMATOCRIT 34.5 % (36.7-47.1); MEAN CORPUSCULAR HEMOGLOBIN 27.7 uug (23.8-33.4); MEAN CORPUSCULAR VOLUME 83.6 fL (73.0-96.2); PLATELET COUNT (AUTO) 225 K/uL (152-348)
[2022-05-11 07:31] LABS: CREATININE 0.7 mg/dL (0.6-1.3); MAGNESIUM 2.2 mg/dL (1.8-2.4); POTASSIUM 4.2 mmol/L (3.5-5.1)
[2022-05-11] MEDS: AMOXICILLIN-CLAVUL 500-125MG TABLET PO SCH (08:11)
[2022-05-11] MEDS: DOCUSATE SODIUM 100 MG CAPSULE PO PRN ×2 (08:11→08:21)
[2022-05-11] MEDS: FAMOTIDINE 20 MG TABLET PO SCH (08:11)
[2022-05-11] MEDS: SERTRALINE HCL 50 MG TABLET PO SCH (08:11)
[2022-05-11] MEDS: MULTIVITAMINS,THERAPEUTIC TABLET PO SCH (08:12)
[2022-05-11] MEDS: NICOTINE 7 MG/24HR PATCH TD SCH (08:12)
[2022-05-11] MEDS: ENOXAPARIN SODIUM 40 MG/0.4 ML DISP.SYRIN SQ SCH (08:18)
[2022-05-11 11:57] VITALS: BP 114/75
[2022-05-11] MEDS ORDERED: AMOX1TAB15 PO (12:11)
[2022-05-11] MEDS: LORAZEPAM 1 MG TABLET PO PRN ×2 (15:00→17:11)
--- NOTE | 2022-05-11 17:00 | NUR ---
Discharge instructions given to patient and at bedside. Instructed to f/u with pmd. Per pt has a tele med appt on this on coming . Pt and verbalized understanding. IV taken out. Home health set up by case management. Per case management pt has o2 @ home. report given to emt. Pt to be d/c with o2 @ 3 lit with sat of 96%. Pt is in no acute distress.
[2022-05-11 17:07] VITALS: BP 95/70
== END 2022-05-11 17:40 | disposition home health service (06) | DRG 189 ==
LOC: ER 00:54 → TRANSITION 05:49 → TELE3 22:13
PROVIDERS: ADMIT Nurse Practitioner Acute Care; ATTEND Nurse Practitioner Acute Care
DX: J96.21 Acute and chronic respiratory failure with hypoxia (principal); G93.41 Metabolic encephalopathy; J44.1 Chronic obstructive pulmonary disease with (acute) exacerbation; J90 Pleural effusion, not elsewhere classified; J96.22 Acute and chronic respiratory failure with hypercapnia; E03.9 Hypothyroidism, unspecified; F32.9 Major depressive disorder, single episode, unspecified; F41.9 Anxiety disorder, unspecified; I10 Essential (primary) hypertension; Z79.899 Other long term (current) drug therapy; Z99.3 Dependence on wheelchair; Z74.01 Bed confinement status; G62.9 Polyneuropathy, unspecified; J84.10 Pulmonary fibrosis, unspecified; G89.29 Other chronic pain; F29 Unspecified psychosis not due to a substance or known physiological condition; Z74.09 Other reduced mobility; Z20.822 Contact with and (suspected) exposure to COVID-19; F03.90 Unspecified dementia, unspecified severity, without behavioral disturbance, psychotic disturbance, mood disturbance, and anxiety; Z99.81 Dependence on supplemental oxygen
CPT/HCPCS: 36415; 71045; 83605; 83735; 84100; 84484; 85025; 87040; 87070; 93005; 94640; 97161; A4663; A9150; G0378; J0456; J0696; J1650; J2060; J2185; J3370; J3590; J7050

== ENCOUNTER 2022-11-16 06:18 | Inpatient (IN) | payer OTHER ==
[~2022-11-16] VITALS: Ht 180.3 cm; Wt 79.4 kg
[~2022-11-16 06:18] MED LIST changes: +ACET160E36 PO; -ALBU18HF2 IH; +ALBU2.5V38 IH; -ALPR0.255 PO; +AMOX1TAB15 PO; -ARIP5TAB10 PO; +DOCU-141 PO; +FAMO-132 PO; +HYDR-3974 PO; +LORA2VIA33 PO; +MAGN400O6 PO; +NICO-780 TD; -SERT25TA PO; +SERT50TA PO; +TEMA15CA5 PO; +TRAZ-257 PO; -ZOLP5TAB2 PO
--- NOTE | 2022-11-16 06:28 | NUR ---
at bedside. Dr. Parnell at bedside. MSE in progress.
[2022-11-16] MEDS ORDERED: ALBUTEROL SULFATE 2.5 MG/3 ML NEBU NEB ONE ×2 (06:45→13:30)
[2022-11-16 07:07] LABS: HEMATOCRIT 37.1 % (36.7-47.1); MEAN CORPUSCULAR HEMOGLOBIN 25.4 uug (23.8-33.4); MEAN CORPUSCULAR VOLUME 81.3 fL (73.0-96.2); PLATELET COUNT (AUTO) 195 K/uL (152-348)
--- NOTE | 2022-11-16 07:20 | NUR ---
Report given to KIM Alvarez.
[2022-11-16 07:22] LABS: CARBON DIOXIDE 32 mmol/L (21-32); CHLORIDE 100 mmol/L (98-107); CREATININE 0.8 mg/dL (0.6-1.3); GLUCOSE 115 mg/dL (74-106); POTASSIUM 4.3 mmol/L (3.5-5.1); UREA NITROGEN, BLOOD 12 mg/dL (7-18)
[2022-11-16 07:32] LABS: ALANINE AMINOTRANSFERASE < 6 U/L (16-63); ALKALINE PHOSPHATASE 80 U/L (50-136); ASPARTATE AMINOTRANSFERASE 10 U/L (15-37); BILIRUBIN,DIRECT 0.3 mg/dL (0.0-0.2); BILIRUBIN,TOTAL 0.7 mg/dL (0.2-1.0); TOTAL PROTEIN, SERUM 8.3 g/dL (6.4-8.2)
[2022-11-16] MEDS ORDERED: ALBUTEROL SULFATE 2.5 MG/3 ML NEBU ONE ×2 (07:49→10:39)
[2022-11-16 08:28] LABS: *BILIRUBIN,URIN NEGATIVE (NEGATIVE); *BLOOD, URINE NEGATIVE (NEGATIVE); *CLARITY,URINE CLEAR (CLEAR); *COLOR,URINE YELLOW (YELLOW); *KETONES,URINE NEGATIVE (NEGATIVE); *UROBILINOGEN,URINE 0.2 E.U./dl (NORMAL); LEUKOCYTE ESTERASE ,URINE NEGATIVE (NEGATIVE); NITRITE, URINE NEGATIVE (NEGATIVE); PH,URINE 8.5 (5.0-8.0); UGLUCOSE NEGATIVE (NEGATIVE)
[2022-11-16] MEDS ORDERED: IV NORMAL SALINE 500 ML IV ONE (09:45)
[2022-11-16] MEDS ORDERED: AZITHROMYCIN IV 500 MG in IV DEXTROSE 5% 250 ML IV ONE (10:30)
[2022-11-16] MEDS ORDERED: FUROSEMIDE 20 MG/2 ML VIAL IV ONE (11:15)
[2022-11-16] MEDS ORDERED: ONDANSETRON 4 MG/2 ML VIAL IV PRN (11:15)
[2022-11-16] MEDS ORDERED: MAGNESIUM HYDROXIDE 30 ML LIQUID UDC PO PRN (11:15)
[2022-11-16] MEDS ORDERED: REMEDY ESSENTIAL ZINC PASTE 113 GM TP PRN (11:15)
[2022-11-16 12:46] LABS: ABG HCO3 31.5 mmol/L; ABG PCO2 49.8 mmHg (35.0-45.0); ABG PH 7.419 (7.350-7.450); ABG SITE RIGHT RADIAL; COHb 0.9 % (0.5-1.5); MetHb 0.2 % (0.0-1.5); O2Hb 98.1 % (94.0-97.0)
--- NOTE | 2022-11-16 13:01 | NUR ---
Educated , pt is high risk for aspiration pt coughed with sips of water insitent on giving him ice chips, explained ice turn to water pt can still aspirate wants pt to drink from a straw, explained , the straw is not the problem, its the pts ability to swallow that is concerning. requested lunch tray states pt is hungry explained high risk of aspiration stated pt did better sitting upright in bed pt is weak pt is on high flow 25L @ 81% O2 saturation 98% requested more water.
[2022-11-16] MEDS ORDERED: FUROSEMIDE 20 MG/2 ML VIAL ONE (14:45)
[2022-11-16] MEDS ORDERED: AZITHROMYCIN 500MG/ D5W 250ML IVPB **ER PYXIS ONLY IV ONE (14:46)
[2022-11-16] MEDS ORDERED: ALBUTEROL SULFATE 2.5 MG/3 ML NEBU NEB SCH (15:22)
[2022-11-16 15:40] VITALS: BP 90/60
--- NOTE | 2022-11-16 15:45 | NUR ---
RECEIVED PT FROM HOME VIA ER ACCOMPANIED BY WITH ADMITTING DIAGNOSIS OF RESPIRATORY FAILURE. PT IS AWAKE AND ALERT, NO DISTRESS ON HIGH FLOW O2 35% SATURATING 98%. ABLE TO FOLLOW COMMANDS, ABLE TO MOVE IN BED. NSR ON TELE MONITOR. INITIAL ASSESSMENT INITIATED. WILL CALL HOSPITALIST FOR ADMISSION ORDERS.
--- NOTE | 2022-11-16 18:43 | NUR ---
PT IN HIGH FOWLERS POSITION, TOLERATED REGULAR DIET WELL WITH HELP OF , JATIN, AT BEDSIDE. NSR ON TELE WITH HR 78BPM.
--- NOTE | 2022-11-16 18:52 | NUR ---
PT COMPLAINING OF CONGESTION, ASKING ABOUT NIGHTTIME ATIVAN, MEDS NOT RECONCILED YET. WILL NOTIFY PM NURSE.
[2022-11-16] MEDS: ALBUTEROL SULFATE 2.5 MG/3 ML NEBU NEB SCH (19:00)
--- NOTE | 2022-11-16 19:33 | NUR ---
notify Niraj Aguilar NP patient request of ativan po for anxiety/insomnia, with order.
[2022-11-16] MEDS: LORAZEPAM 0.5 MG TABLET PO PRN (19:54)
[2022-11-16 20:22] VITALS: BP 99/66
--- NOTE | 2022-11-16 21:00 | NUR ---
Patient alert oriented, no complain of chest pain, patient on high flow 25liters/60% fi02, saturation 97%, without episode of anxiety,patient short of breath kept hob elevated, encouraged patient to shift weight while on seating position to prevent pressure sore. cont to monitor.
[2022-11-16] MEDS: TEMAZEPAM 15 MG CAPSULE PO SCH (22:04)
[2022-11-16] MEDS: TRAZODONE 100 MG TABLET PO SCH (22:04)
[2022-11-17 00:03] VITALS: BP 94/62
[2022-11-17 04:13] VITALS: BP 90/61
[2022-11-17] MEDS: PANTOPRAZOLE SODIUM 40 MG TABLET.DR PO SCH (06:08)
--- NOTE | 2022-11-17 06:25 | NUR ---
Patient slept most of the night, no sob no chest pain, sinus on tele, patient calm and cooperative, still on high flow oxygen 99% saturation, crush meds with pudding tolerate well, cont to monitor.
[2022-11-17 07:15] LABS: HEMATOCRIT 32.3 % (36.7-47.1); MEAN CORPUSCULAR HEMOGLOBIN 25.7 uug (23.8-33.4); MEAN CORPUSCULAR VOLUME 81.4 fL (73.0-96.2); PLATELET COUNT (AUTO) 159 K/uL (152-348)
[2022-11-17 07:38] LABS: THYROID STIMULATING HORMONE 1.688 mIU/mL (0.358-3.740)
[2022-11-17 07:40] VITALS: BP 91/56
[2022-11-17 07:45] LABS: CREATININE 0.8 mg/dL (0.6-1.3); MAGNESIUM 2.1 mg/dL (1.8-2.4); PHOSPHOROUS 3.7 mg/dL (2.5-4.9); POTASSIUM 4.4 mmol/L (3.5-5.1)
[2022-11-17] MEDS: ALBUTEROL SULFATE 2.5 MG/3 ML NEBU NEB SCH ×3 (08:44→19:26)
[2022-11-17 11:35] VITALS: BP 89/60
[2022-11-17] MEDS: LEVOTHYROXINE SODIUM 75 MCG TABLET PO SCH (12:23)
[2022-11-17] MEDS: SERTRALINE HCL 50 MG TABLET PO SCH (12:31)
[2022-11-17] MEDS: LORAZEPAM 0.5 MG TABLET PO PRN (15:24)
[2022-11-17 16:00] VITALS: BP 99/65
[2022-11-17] MEDS: ACETAMINOPHEN 325 MG TABLET PO PRN (17:38)
--- NOTE | 2022-11-17 20:40 | NUR ---
Patient alert oriented, on high flow oxygen 25/45% sat wnl, no complain of pain, no sob, kept clean dry and comfortable, patient relax no anxiety episodes noted, cont to monitor.
[2022-11-17 21:04] VITALS: BP 103/70
[2022-11-17] MEDS: TEMAZEPAM 15 MG CAPSULE PO SCH (21:24)
[2022-11-17] MEDS: TRAZODONE 100 MG TABLET PO SCH (21:24)
[2022-11-18 00:05] VITALS: BP 97/64
[2022-11-18 04:20] VITALS: BP 107/77
[2022-11-18] MEDS: LEVOTHYROXINE SODIUM 75 MCG TABLET PO SCH (06:18)
[2022-11-18] MEDS: PANTOPRAZOLE SODIUM 40 MG TABLET.DR PO SCH (06:18)
--- NOTE | 2022-11-18 07:00 | NUR ---
Patient alert oriented, no sob no chest pain, sinus on tele, sat wnl still on high flow oxygen 25/45, no episode of anxiety noted, tolerate thin liquid, kept hob eleveted 45 degrees when drinking, cont to monitor.
[2022-11-18 07:26] LABS: HEMATOCRIT 31.9 % (36.7-47.1); MEAN CORPUSCULAR HEMOGLOBIN 26.1 uug (23.8-33.4); MEAN CORPUSCULAR VOLUME 80.5 fL (73.0-96.2); PLATELET COUNT (AUTO) 178 K/uL (152-348)
[2022-11-18 07:58] LABS: CREATININE 0.7 mg/dL (0.6-1.3); MAGNESIUM 2.1 mg/dL (1.8-2.4); PHOSPHOROUS 3.5 mg/dL (2.5-4.9); POTASSIUM 3.9 mmol/L (3.5-5.1)
[2022-11-18] MEDS: ALBUTEROL SULFATE 2.5 MG/3 ML NEBU NEB SCH ×3 (08:00→20:29)
[2022-11-18] MEDS: MULTIVITAMINS,THERAPEUTIC TABLET PO SCH (10:31)
[2022-11-18] MEDS: SERTRALINE HCL 50 MG TABLET PO SCH (10:31)
[2022-11-18 12:00] VITALS: BP 103/71
--- NOTE | 2022-11-18 13:12 | NUR ---
WOUND CARE CONSULT: PT PRESENTS WITH SACRAL DEEP TISSUE INJURY AND RT ARM SKIN TEAR, PRESENT ON ADMISSION. RECOMMENDATIONS MADE FOR WOUND CARE AND SKIN PROTECTION. DISCUSSED WITH NURSING STAFF. PT IS THIN AND BONY. IN AGREEMENT WITH PLAN OF CARE. Addendum: 11/18/22 at 1313 by JOAQUIN KAUR RN Amended: Links added.
[2022-11-18] MEDS: AZITHROMYCIN IV 500 MG in IV DEXTROSE 5% 250 ML IV SCH (16:01)
[2022-11-18] MEDS: LORAZEPAM 0.5 MG TABLET PO PRN (18:25)
[2022-11-18 20:00] VITALS: BP 100/72
[2022-11-18] MEDS: TEMAZEPAM 15 MG CAPSULE PO SCH (21:43)
[2022-11-18] MEDS: TRAZODONE 100 MG TABLET PO SCH (21:43)
[2022-11-19] VITALS: BP 100/65
[2022-11-19] MEDS: LORAZEPAM 0.5 MG TABLET PO PRN ×2 (02:29→15:20)
[2022-11-19 04:00] VITALS: BP 102/70
[2022-11-19] MEDS: PANTOPRAZOLE SODIUM 40 MG TABLET.DR PO SCH (06:02)
[2022-11-19] MEDS: LEVOTHYROXINE SODIUM 75 MCG TABLET PO SCH (06:02)
[2022-11-19] MEDS: ALBUTEROL SULFATE 2.5 MG/3 ML NEBU NEB SCH ×3 (07:19→21:31)
[2022-11-19 07:23] LABS: CREATININE 0.6 mg/dL (0.6-1.3); MAGNESIUM 2.1 mg/dL (1.8-2.4); PHOSPHOROUS 3.7 mg/dL (2.5-4.9)
--- NOTE | 2022-11-19 07:32 | NUR ---
Patient alert oriented no sob no chest pain, still on high flow oxygen, saturation wnl, still with episode of anxiety, sinus rhythm on tele, no complain of pain, cont to monitor.
[2022-11-19 08:03] LABS: HEMATOCRIT 32.3 % (36.7-47.1); MEAN CORPUSCULAR HEMOGLOBIN 25.8 uug (23.8-33.4); MEAN CORPUSCULAR VOLUME 80.8 fL (73.0-96.2); PLATELET COUNT (AUTO) 174 K/uL (152-348)
[2022-11-19] MEDS: SERTRALINE HCL 50 MG TABLET PO SCH (09:41)
[2022-11-19] MEDS: MULTIVITAMINS,THERAPEUTIC TABLET PO SCH (09:41)
[2022-11-19 12:00] VITALS: BP 106/67
[2022-11-19] MEDS: AZITHROMYCIN IV 500 MG in IV DEXTROSE 5% 250 ML IV SCH (13:00)
[2022-11-19 16:00] VITALS: BP 105/72
[2022-11-19] MEDS: ENSURE ENLIVE (VAN) 240 ML LIQUID PO SCH (17:00)
[2022-11-19 20:00] VITALS: BP 100/66
[2022-11-19] MEDS: TRAZODONE 100 MG TABLET PO SCH (20:57)
[2022-11-19] MEDS: TEMAZEPAM 15 MG CAPSULE PO SCH (21:00)
[2022-11-20] VITALS: BP 106/78
[2022-11-20] MEDS: ALBUTEROL SULFATE 2.5 MG/3 ML NEBU NEB SCH ×4 (00:20→21:29)
[2022-11-20] MEDS: LORAZEPAM 0.5 MG TABLET PO PRN ×2 (01:49→21:38)
[2022-11-20 04:00] VITALS: BP 110/64
[2022-11-20] MEDS: LEVOTHYROXINE SODIUM 75 MCG TABLET PO SCH (06:39)
[2022-11-20] MEDS: PANTOPRAZOLE SODIUM 40 MG TABLET.DR PO SCH (06:39)
--- NOTE | 2022-11-20 06:59 | NUR ---
PATIENT IN BED AWAKE AND ALERT IN STABLE CONDITION. ABLE TO MAKE NEEDS KNOWN.. PATIENT KEPT CLEAN DRY AND COMFORTABLE.NO SOB OR RESPIRATORY DISTRESS NOTED.
[2022-11-20 07:16] LABS: CREATININE 0.7 mg/dL (0.6-1.3); MAGNESIUM 2.2 mg/dL (1.8-2.4); PHOSPHOROUS 3.8 mg/dL (2.5-4.9); POTASSIUM 4.5 mmol/L (3.5-5.1)
[2022-11-20 08:00] VITALS: BP 113/80
[2022-11-20 08:02] LABS: HEMATOCRIT 33.5 % (36.7-47.1); MEAN CORPUSCULAR HEMOGLOBIN 26.1 uug (23.8-33.4); MEAN CORPUSCULAR VOLUME 80.3 fL (73.0-96.2); PLATELET COUNT (AUTO) 198 K/uL (152-348)
--- NOTE | 2022-11-20 08:50 | NUR ---
HIGH FLOW D/C, SWITCH TO 3L NC IF TOLERABLE. WILL CONT TO MONITOR
[2022-11-20] MEDS: SERTRALINE HCL 50 MG TABLET PO SCH (08:58)
[2022-11-20] MEDS: ENSURE ENLIVE (VAN) 240 ML LIQUID PO SCH ×3 (08:58→17:00)
[2022-11-20] MEDS: MULTIVITAMINS,THERAPEUTIC TABLET PO SCH (08:58)
[2022-11-20] MEDS: ACETAMINOPHEN 325 MG TABLET PO PRN (08:58)
[2022-11-20 12:00] VITALS: BP 142/54
[2022-11-20] MEDS: AZITHROMYCIN IV 500 MG in IV DEXTROSE 5% 250 ML IV SCH (12:35)
[2022-11-20 16:00] VITALS: BP_SYST 103; BP_SYST 109; BP_DIAS 45; BP_DIAS 74
--- NOTE | 2022-11-20 16:52 | NUR ---
PT TOLERATING 3L NC SATURATING 93-95%. NO SOB COMPLAIN.
[2022-11-20 20:00] VITALS: BP 108/78
[2022-11-20] MEDS: TRAZODONE 100 MG TABLET PO SCH (21:29)
[2022-11-20] MEDS: TEMAZEPAM 15 MG CAPSULE PO SCH ×2 (21:50→22:50)
[2022-11-21] MEDS: TEMAZEPAM 15 MG CAPSULE PO SCH (00:08)
--- NOTE | 2022-11-21 04:58 | NUR ---
Patient has been stable during shift, no sign of respiratory distress observed. He took his prescribed and PRN medications without any incidents. Patient is pleasant and appropriate with staffs. We will continue to monitor patient for safety.
[2022-11-21] MEDS: PANTOPRAZOLE SODIUM 40 MG TABLET.DR PO SCH (06:21)
[2022-11-21] MEDS: LEVOTHYROXINE SODIUM 75 MCG TABLET PO SCH (06:21)
[2022-11-21 07:19] LABS: HEMATOCRIT 34.8 % (36.7-47.1); MEAN CORPUSCULAR HEMOGLOBIN 25.6 uug (23.8-33.4); MEAN CORPUSCULAR VOLUME 80.9 fL (73.0-96.2); PLATELET COUNT (AUTO) 188 K/uL (152-348)
[2022-11-21 07:43] LABS: CREATININE 0.8 mg/dL (0.6-1.3); MAGNESIUM 2.1 mg/dL (1.8-2.4); PHOSPHOROUS 4.6 mg/dL (2.5-4.9); POTASSIUM 4.1 mmol/L (3.5-5.1)
[2022-11-21] MEDS: ALBUTEROL SULFATE 2.5 MG/3 ML NEBU NEB SCH ×2 (07:49→13:55)
[2022-11-21 08:00] VITALS: BP 115/51
[2022-11-21] MEDS: MULTIVITAMINS,THERAPEUTIC TABLET PO SCH (08:52)
[2022-11-21] MEDS: SERTRALINE HCL 50 MG TABLET PO SCH (08:52)
[2022-11-21] MEDS: ENSURE ENLIVE (VAN) 240 ML LIQUID PO SCH (08:53)
--- NOTE | 2022-11-21 09:05 | NUR ---
PT AWAKE AND ORIENTED. NO ACUTE CHANGES. NO SOB NOTED. PT STILL ON 3L NC SATURATING 92-95. RIGHT ARM WOUND DRESSING DONE. AT BEDSIDE. WILL CONT TO MONITOR.
--- NOTE | 2022-11-21 10:35 | NUR ---
CLEARED PT FOR DISCHARGE WILL F/U W/ CM.
[2022-11-21 11:10] VITALS: BP 105/72
[2022-11-21] MEDS ORDERED: AZIT200S48 PO (12:01)
[2022-11-21] MEDS: AZITHROMYCIN IV 500 MG in IV DEXTROSE 5% 250 ML IV SCH (12:28)
[2022-11-21] MEDS: LORAZEPAM 0.5 MG TABLET PO PRN (12:48)
--- NOTE | 2022-11-21 14:32 | NUR ---
PT IS DISCHARGE. PT IS IS HEMODYNAMICALLY STABLE. NO SOB COMPLAIN NO PAIN COMPLAIN. IV ACCESS REMOVE. ALL BELONGINGS ACCOUNTED FOR. PT WILL GO HOME WITH . 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
== END 2022-11-21 14:25 | disposition home health service (06) | DRG 189 ==
LOC: ER 06:35 → MEDSURG3 15:16 → TELE-TD3 15:38 → TELE3 11-17 11:45
PROVIDERS: ADMIT Nurse Practitioner Family; ATTEND Nurse Practitioner Acute Care
DX: J96.21 Acute and chronic respiratory failure with hypoxia (principal); J15.9 Unspecified bacterial pneumonia; J44.1 Chronic obstructive pulmonary disease with (acute) exacerbation; E44.1 Mild protein-calorie malnutrition; E87.20 Acidosis, unspecified; J81.1 Chronic pulmonary edema; J90 Pleural effusion, not elsewhere classified; J44.0 Chronic obstructive pulmonary disease with (acute) lower respiratory infection; J96.22 Acute and chronic respiratory failure with hypercapnia; D72.829 Elevated white blood cell count, unspecified; E03.9 Hypothyroidism, unspecified; E88.09 Other disorders of plasma-protein metabolism, not elsewhere classified; G40.909 Epilepsy, unspecified, not intractable, without status epilepticus; Z66 Do not resuscitate; Z99.81 Dependence on supplemental oxygen; Z87.891 Personal history of nicotine dependence; Z85.828 Personal history of other malignant neoplasm of skin; Z20.822 Contact with and (suspected) exposure to COVID-19; Z68.24 Body mass index [BMI] 24.0-24.9, adult; F31.9 Bipolar disorder, unspecified; F41.9 Anxiety disorder, unspecified; Z88.8 Allergy status to other drugs, medicaments and biological substances; R53.1 Weakness; J20.9 Acute bronchitis, unspecified; L89.156 Pressure-induced deep tissue damage of sacral region
CPT/HCPCS: 36415; 36600; 71045; 71250; 76604; 83605; 83735; 84100; 84443; 84484; 85025; 85730; 87040; 93005; 93307; 94640; 94664; A4663; A6209; A6213; G0378; J0456; J1940; J7040; J7050

== ENCOUNTER 2023-10-17 21:51 | Emergency (ER) | payer OTHER ==
[~2023-10-17] VITALS: Ht 175.3 cm; Wt 61.7 kg
[~2023-10-17 21:51] MED LIST changes: -AMOX1TAB15 PO; +AZIT200S48 PO; -DOCU-141 PO; -FAMO-132 PO; -NICO-780 TD
[2023-10-17] MEDS ORDERED: IPRATROPIUM BROMIDE 0.5 MG/2.5 ML NEBU NEB ONE (22:00)
[2023-10-17] MEDS ORDERED: ALBUTEROL SULFATE 2.5 MG/3 ML NEBU NEB ONE (22:00)
[2023-10-17] MEDS ORDERED: LORA0.5T48 PO (22:11)
[2023-10-17 22:26] LABS: BASOPHILS % (AUTO) 0.9 % (0.0-2.0); DIFFERENTIAL COMMENT 0; EOSINOPHILS # (AUTO) 0.2 K/uL (0.0-0.7); EOSINOPHILS % (AUTO) 4.1 % (0.0-7.0); HEMATOCRIT 40.8 % (36.7-47.1); HEMOGLOBIN 12.9 g/dL (12.5-16.3); LYMPHOCYTES # (AUTO) 0.3 K/uL (0.8-4.8); LYMPHOCYTES % (AUTO) 7.9 % (20.5-51.5); MEAN CORPUSCULAR HEMOGLOBIN 27.4 uug (23.8-33.4); MEAN CORPUSCULAR HGB CONC 32 g/dL (32.5-36.3); MEAN CORPUSCULAR VOLUME 86.7 fL (73.0-96.2); MONOCYTES # (AUTO) 0.2 K/uL (0.1-1.30); MONOCYTES % (AUTO) 4.6 % (0.0-11.0); NEUTROPHILS # (AUTO) 3.4 K/uL (1.8-8.9); NEUTROPHILS % (AUTO) 82.5 % (38.5-71.5); PLATELET COUNT (AUTO) 147 K/uL (152-348); RED CELL DISTRIBUTION WIDTH 17.3 % (12.1-16.2); WHITE BLOOD COUNT (AUTO) 4.1 K/uL (3.6-10.2)
[2023-10-17 22:45] VITALS: O2SAT 96
[2023-10-17] MEDS ORDERED: CEFTRIAXONE 1 G in IV DEXTROSE 5% 50 ML IV ONE (22:45)
[2023-10-17] MEDS ORDERED: CEFTRIAXONE /D5W 50ML IVPB **ER PYXIS IV ONE (22:48)
[2023-10-17 22:51] LABS: ALANINE AMINOTRANSFERASE 10 U/L (16-63); ALBUMIN 3.6 g/dL (3.4-5.0); ALKALINE PHOSPHATASE 96 U/L (50-136); ASPARTATE AMINOTRANSFERASE 19 U/L (15-37); BILIRUBIN,DIRECT 0.1 mg/dL (0.0-0.2); BILIRUBIN,TOTAL 0.5 mg/dL (0.2-1.0); CALCIUM 9.2 mg/dL (8.5-10.1); CHLORIDE 96 mmol/L (98-107); CREATININE 0.8 mg/dL (0.6-1.3); GLUCOSE 122 mg/dL (74-106); NT-PRO BNP 511 pg/mL (0-125); POTASSIUM 4.3 mmol/L (3.5-5.1); SODIUM SERUM 140 mmol/L (136-145); TOTAL PROTEIN, SERUM 8.4 g/dL (6.4-8.2); UREA NITROGEN, BLOOD 15 mg/dL (7-18)
[2023-10-17 22:56] LABS: CARBON DIOXIDE 40 mmol/L (21-32)
[2023-10-17 22:59] VITALS: O2SAT 97
[2023-10-17 23:00] VITALS: O2SAT 97
[2023-10-17] MEDS ORDERED: CEFU500T66 PO (23:37)
[2023-10-18 00:28] VITALS: BP 110/78; TEMP 97.8; O2SAT 91
== END 2023-10-18 00:29 | disposition home or self-care (01) ==
LOC: ER 21:53
DX: J44.1 Chronic obstructive pulmonary disease with (acute) exacerbation (principal); F32.A Depression, unspecified; E03.9 Hypothyroidism, unspecified; F17.200 Nicotine dependence, unspecified, uncomplicated; Z79.899 Other long term (current) drug therapy; Z88.1 Allergy status to other antibiotic agents; Z88.2 Allergy status to sulfonamides
CPT/HCPCS: 99285; 96365; 71045; 87804 ×2; 80076; 80048; 83880; 85025; 84484; 36415; 93005; 94640; J0696; A4606; A4663

== ENCOUNTER 2024-01-15 17:25 | Inpatient (IN) | payer OTHER ==
[~2024-01-15] VITALS: Ht 175.3 cm; Wt 59.0 kg
[~2024-01-15 17:25] MED LIST changes: +CEFU500T66 PO; +LORA0.5T48 PO
[2024-01-15 18:03] LABS: ABG BASE EXCESS 9.8 mmol/L (-2.0-2.0); ABG HCO3 38.8 mmol/L (22.0-26.0); ABG PCO2 75.4 mmHg (35.0-48.0); ABG PH 7.329 (7.340-7.440); ABG PO2 184.7 mmHg (75.0-100.0); ABG SITE LEFT RADIAL; ABG TOTAL HEMOGLOBIN 13.3 G/dL (14.0-18.0); AaDO2 99.1 mmHg; COHb 0.7 % (0.0-3.9); MetHb 0.5 % (0.0-1.5); O2Hb 98.2 % (94.0-97.0)
[2024-01-15 18:17] LABS: BASOPHILS % (AUTO) 0.5 % (0.0-2.0); EOSINOPHILS % (AUTO) 0.4 % (0.0-7.0); HEMATOCRIT 38.5 % (36.7-47.1); HEMOGLOBIN 12.4 g/dL (12.5-16.3); LYMPHOCYTES # (AUTO) 0.2 K/uL (0.8-4.8); LYMPHOCYTES % (AUTO) 1.9 % (20.5-51.5); MEAN CORPUSCULAR HEMOGLOBIN 28.3 uug (23.8-33.4); MEAN CORPUSCULAR HGB CONC 32 g/dL (32.5-36.3); MEAN CORPUSCULAR VOLUME 87.8 fL (73.0-96.2); MONOCYTES # (AUTO) 0.5 K/uL (0.1-1.30); MONOCYTES % (AUTO) 5.5 % (0.0-11.0); NEUTROPHILS # (AUTO) 8.3 K/uL (1.8-8.9); NEUTROPHILS % (AUTO) 91.7 % (38.5-71.5); PLATELET COUNT (AUTO) 132 K/uL (152-348); RED BLOOD CELL COUNT(AUTO) 4.38 MIL/uL (4.06-5.63); RED CELL DISTRIBUTION WIDTH 15.8 % (12.1-16.2); WHITE BLOOD COUNT (AUTO) 9.1 K/uL (3.6-10.2)
[2024-01-15] MEDS: IV NORMAL SALINE 1000 ML BAG IV ONE (18:30)
[2024-01-15 18:38] LABS: *BILIRUBIN,URIN NEGATIVE (NEGATIVE); *BLOOD, URINE NEGATIVE (NEGATIVE); *CLARITY,URINE CLEAR (CLEAR); *COLOR,URINE YELLOW (YELLOW); *KETONES,URINE NEGATIVE (NEGATIVE); *PROTEIN,URINE 1+ (NEGATIVE); *UROBILINOGEN,URINE 0.2 E.U./dl (NORMAL); LEUKOCYTE ESTERASE ,URINE NEGATIVE (NEGATIVE); NITRITE, URINE NEGATIVE (NEGATIVE); UGLUCOSE NEGATIVE (NEGATIVE)
[2024-01-15 18:40] LABS: DIFFERENTIAL COMMENT 1
[2024-01-15 18:49] LABS: CALCIUM 9.4 mg/dL (8.5-10.1); CARBON DIOXIDE 38 mmol/L (21-32); CHLORIDE 100 mmol/L (98-107); CREATININE 0.8 mg/dL (0.6-1.3); GLUCOSE 102 mg/dL (74-106); SODIUM SERUM 141 mmol/L (136-145); UREA NITROGEN, BLOOD 15 mg/dL (7-18)
[2024-01-15] MEDS: CEFTRIAXONE 1 G in IV DEXTROSE 5% 50 ML IV ONE (18:55)
[2024-01-15 18:58] LABS: ALBUMIN 3.6 g/dL (3.4-5.0); ALKALINE PHOSPHATASE 91 U/L (50-136); ASPARTATE AMINOTRANSFERASE 9 U/L (15-37); BILIRUBIN,DIRECT 0.3 mg/dL (0.0-0.2); BILIRUBIN,TOTAL 0.7 mg/dL (0.2-1.0); TOTAL PROTEIN, SERUM 8.2 g/dL (6.4-8.2)
[2024-01-15 19:08] LABS: BACTERIA,URINE NONE SEEN /HPF (NONE SEEN); RBC,URINE 0-3 /HPF (0-3); SQUAMOUS EPITHELIAL CELL,UR FEW /HPF (NONE SEEN); WBC,URINE NONE SEEN /HPF (0-3)
[2024-01-15 19:09] LABS: URINE AMORPHOUS URATE MODERATE /HPF
[2024-01-15 19:22] LABS: ALANINE AMINOTRANSFERASE 6 U/L (16-63); NT-PRO BNP 723 pg/mL (0-125)
[2024-01-15 19:47] LABS: ABG BASE EXCESS 9.2 mmol/L (-2.0-2.0); ABG HCO3 37.8 mmol/L (22.0-26.0); ABG PCO2 73.5 mmHg (35.0-48.0); ABG PH 7.329 (7.340-7.440); ABG PO2 69.9 mmHg (75.0-100.0); ABG SITE LEFT RADIAL; ABG TOTAL HEMOGLOBIN 12.6 G/dL (14.0-18.0); AaDO2 92.1 mmHg; COHb 0.6 % (0.0-3.9); MetHb 0.3 % (0.0-1.5); O2Hb 92.1 % (94.0-97.0)
[2024-01-15] MEDS ORDERED: VANCOMYCIN IV 200 ML ONE (20:00)
[2024-01-15] MEDS ORDERED: CLINDAMYCIN 600 MG PIGGYBACK**ER OMNI IV ONE (20:01)
[2024-01-15] MEDS: CLINDAMYCIN PHOSPHATE IV 600 MG in IV DEXTROSE 5% 100 ML IV ONE (20:12)
[2024-01-15] MEDS: VANCOMYCIN IV 1,000 MG in IV DEXTROSE 5% 250 ML IV ONE (20:49)
[2024-01-15 22:38] LABS: ABG BASE EXCESS 8.1 mmol/L (-2.0-2.0); ABG HCO3 36.2 mmol/L (22.0-26.0); ABG PCO2 69.1 mmHg (35.0-48.0); ABG PH 7.337 (7.340-7.440); ABG PO2 81.9 mmHg (75.0-100.0); ABG TOTAL HEMOGLOBIN 12.3 G/dL (14.0-18.0); COHb 0.8 % (0.0-3.9); MetHb 0.2 % (0.0-1.5)
[2024-01-15] MEDS ORDERED: ALBUTEROL SULFATE 1.25 MG/3 ML NEBU NEB PRN (23:15)
[2024-01-15] MEDS ORDERED: IPRATROPIUM BROMIDE 0.5 MG/2.5 ML NEBU NEB PRN (23:15)
[2024-01-15] MEDS ORDERED: ONDANSETRON 4 MG/2 ML VIAL IV PRN (23:15)
[2024-01-16] VITALS (18 sets, daily range): BP systolic 94–131; BP diastolic 62–91; TEMP 97.4–98.8; O2SAT 60–99
[2024-01-16] MEDS ORDERED: CEFTRIAXONE /D5W 50ML IVPB **ER PYXIS IV ONE ×2 (00:26→21:18)
[2024-01-16] MEDS: ACETAMINOPHEN 325 MG TABLET PO PRN (00:38)
[2024-01-16] MEDS: ENOXAPARIN SODIUM 40 MG/0.4 ML DISP.SYRIN SQ SCH (00:40)
[2024-01-16] MEDS: CEFTRIAXONE 1 G in IV DEXTROSE 5% 50 ML IV SCH (00:41)
[2024-01-16 08:23] LABS: BASOPHILS % (AUTO) 0.3 % (0.0-2.0); EOSINOPHILS % (AUTO) 0.3 % (0.0-7.0); HEMATOCRIT 35.3 % (36.7-47.1); HEMOGLOBIN 11.4 g/dL (12.5-16.3); LYMPHOCYTES # (AUTO) 0.3 K/uL (0.8-4.8); LYMPHOCYTES % (AUTO) 3.5 % (20.5-51.5); MEAN CORPUSCULAR HEMOGLOBIN 28.6 uug (23.8-33.4); MEAN CORPUSCULAR HGB CONC 32 g/dL (32.5-36.3); MEAN CORPUSCULAR VOLUME 88.6 fL (73.0-96.2); MONOCYTES # (AUTO) 0.3 K/uL (0.1-1.30); MONOCYTES % (AUTO) 3.6 % (0.0-11.0); NEUTROPHILS # (AUTO) 8.1 K/uL (1.8-8.9); NEUTROPHILS % (AUTO) 92.3 % (38.5-71.5); PLATELET COUNT (AUTO) 119 K/uL (152-348); RED BLOOD CELL COUNT(AUTO) 3.98 MIL/uL (4.06-5.63); RED CELL DISTRIBUTION WIDTH 15.8 % (12.1-16.2); WHITE BLOOD COUNT (AUTO) 8.7 K/uL (3.6-10.2)
[2024-01-16 08:51] LABS: DIFFERENTIAL COMMENT 1
[2024-01-16 08:56] LABS: CALCIUM 9.1 mg/dL (8.5-10.1); CARBON DIOXIDE 35 mmol/L (21-32); CHLORIDE 99 mmol/L (98-107); CREATININE 0.7 mg/dL (0.6-1.3); GLUCOSE 94 mg/dL (74-106); PHOSPHOROUS 3.6 mg/dL (2.5-4.9); SODIUM SERUM 139 mmol/L (136-145); UREA NITROGEN, BLOOD 15 mg/dL (7-18)
[2024-01-16] MEDS ORDERED: HYDROCODONE/APAP 5-325MG TABLET PO PRN (09:45)
[2024-01-16] MEDS ORDERED: LORAZEPAM 0.5 MG TABLET PO PRN (09:45)
[2024-01-16] MEDS: MULTIVITAMINS,THERAPEUTIC TABLET PO SCH (09:58)
[2024-01-16] MEDS: LEVOTHYROXINE SODIUM 75 MCG TABLET PO SCH (09:59)
[2024-01-16] MEDS: SERTRALINE HCL 50 MG TABLET PO SCH (09:59)
[2024-01-16] MEDS ORDERED: NORMAL SALINE NASAL 45 ML BOTTLE NS PRN (10:30)
[2024-01-16] MEDS ORDERED: IPRATROPIUM BROMIDE 0.5 MG/2.5 ML NEBU NEB PRN (10:45)
[2024-01-16] MEDS ORDERED: ALBUTEROL SULFATE 2.5 MG/ 0.5 ML NEBU NEB PRN (10:45)
[2024-01-16 10:58] LABS: ABG HCO3 37.4 mmol/L (22.0-26.0); ABG PCO2 79.3 mmHg (35.0-48.0); ABG PH 7.291 (7.340-7.440); ABG PO2 188.4 mmHg (75.0-100.0); ABG SITE RIGHT RADIAL; ABG TOTAL HEMOGLOBIN 12.6 G/dL (14.0-18.0); AaDO2 99.1 mmHg; COHb 0.9 % (0.0-3.9); MetHb 0.3 % (0.0-1.5); O2Hb 98.4 % (94.0-97.0)
[2024-01-16] MEDS ORDERED: LORAZEPAM 2 MG/1 ML VIAL IV PRN (13:00)
[2024-01-16] MEDS: LORAZEPAM 2 MG/1 ML VIAL IV ONE (13:25)
[2024-01-16] MEDS: CLINDAMYCIN PHOSPHATE IV 600 MG in IV DEXTROSE 5% 100 ML IV SCH (14:15)
[2024-01-16] MEDS ORDERED: TEMA7.5C2 PO (16:16)
[2024-01-16] MEDS ORDERED: ALBU2.5V38 NEB (16:25)
[2024-01-16] MEDS: IV D5/ 0.9% NACL 1,000 ML IV PRN (17:38)
[2024-01-16] MEDS: TRAZODONE 100 MG TABLET PO SCH (20:19)
[2024-01-16] MEDS ORDERED: CLINDAMYCIN 600 MG PIGGYBACK**ER OMNI IV ONE (22:15)
[2024-01-17] VITALS (23 sets, daily range): BP systolic 92–131; BP diastolic 66–88; TEMP 97.4–98.5; O2SAT 75–100
[2024-01-17] MEDS: TEMAZEPAM 7.5 MG CAPSULE PO PRN (01:44)
[2024-01-17 05:35] LABS: BASOPHILS % (AUTO) 0.3 % (0.0-2.0); EOSINOPHILS # (AUTO) 0.1 K/uL (0.0-0.7); EOSINOPHILS % (AUTO) 1.8 % (0.0-7.0); HEMOGLOBIN 11.4 g/dL (12.5-16.3); LYMPHOCYTES # (AUTO) 0.4 K/uL (0.8-4.8); LYMPHOCYTES % (AUTO) 7.5 % (20.5-51.5); MEAN CORPUSCULAR HEMOGLOBIN 28.6 uug (23.8-33.4); MEAN CORPUSCULAR HGB CONC 33 g/dL (32.5-36.3); MEAN CORPUSCULAR VOLUME 87.9 fL (73.0-96.2); MONOCYTES # (AUTO) 0.3 K/uL (0.1-1.30); MONOCYTES % (AUTO) 6.6 % (0.0-11.0); NEUTROPHILS # (AUTO) 4.2 K/uL (1.8-8.9); NEUTROPHILS % (AUTO) 83.8 % (38.5-71.5); PLATELET COUNT (AUTO) 118 K/uL (152-348); RED BLOOD CELL COUNT(AUTO) 3.99 MIL/uL (4.06-5.63); RED CELL DISTRIBUTION WIDTH 15.9 % (12.1-16.2); WHITE BLOOD COUNT (AUTO) 5.1 K/uL (3.6-10.2)
[2024-01-17 05:39] LABS: DIFFERENTIAL COMMENT 1
[2024-01-17 05:46] LABS: CALCIUM 8.7 mg/dL (8.5-10.1); CARBON DIOXIDE 33 mmol/L (21-32); CHLORIDE 101 mmol/L (98-107); CREATININE 0.5 mg/dL (0.6-1.3); GLUCOSE 89 mg/dL (74-106); PHOSPHOROUS 3.4 mg/dL (2.5-4.9); POTASSIUM 4.7 mmol/L (3.5-5.1); SODIUM SERUM 137 mmol/L (136-145); UREA NITROGEN, BLOOD 17 mg/dL (7-18)
[2024-01-17] MEDS ORDERED: CLINDAMYCIN 600 MG PIGGYBACK**ER OMNI IV ONE (05:49)
[2024-01-17 06:30] LABS: ABG BASE EXCESS 5.3 mmol/L (-2.0-2.0); ABG HCO3 33.2 mmol/L (22.0-26.0); ABG PCO2 66.1 mmHg (35.0-48.0); ABG PH 7.319 (7.340-7.440); ABG SITE RIGHT RADIAL; ABG TOTAL HEMOGLOBIN 11.9 G/dL (14.0-18.0); AaDO2 95.3 mmHg; COHb 0.7 % (0.0-3.9); MetHb 0.1 % (0.0-1.5); O2Hb 95.8 % (94.0-97.0)
[2024-01-17] MEDS: IPRATROPIUM BROMIDE 0.5 MG/2.5 ML NEBU NEB SCH (11:13)
[2024-01-17] MEDS: ALBUTEROL SULFATE 2.5 MG/3 ML NEBU NEB SCH (11:13)
[2024-01-17] MEDS: LORAZEPAM 0.5 MG TABLET PO PRN (12:40)
[2024-01-17] MEDS: BISACODYL 10 MG SUPP.RECT RC ONE (16:32)
[2024-01-17] MEDS ORDERED: CLIN300C12 PO (20:41)
== END 2024-01-17 18:41 | disposition left against medical advice (07) | DRG 177 ==
LOC: ER 17:28 → TELE3 21:09 → CCU 01-16 15:45
PROVIDERS: ADMIT Nurse Practitioner Acute Care; ATTEND Nurse Practitioner Acute Care
PROC: 5A09357 Assistance with Respiratory Ventilation, Less than 24 Consecutive Hours, Continuous Positive Airway Pressure (ICD-10-PCS; principal; 2024-01-15)
DX: J69.0 Pneumonitis due to inhalation of food and vomit (principal); G93.41 Metabolic encephalopathy; J96.21 Acute and chronic respiratory failure with hypoxia; J96.22 Acute and chronic respiratory failure with hypercapnia; J44.1 Chronic obstructive pulmonary disease with (acute) exacerbation; E44.1 Mild protein-calorie malnutrition; J98.11 Atelectasis; J90 Pleural effusion, not elsewhere classified; Z99.81 Dependence on supplemental oxygen; E88.09 Other disorders of plasma-protein metabolism, not elsewhere classified; Z85.828 Personal history of other malignant neoplasm of skin; Z88.8 Allergy status to other drugs, medicaments and biological substances; Z87.891 Personal history of nicotine dependence; Z80.8 Family history of malignant neoplasm of other organs or systems; D64.9 Anemia, unspecified; Z88.7 Allergy status to serum and vaccine; E03.9 Hypothyroidism, unspecified; Z86.59 Personal history of other mental and behavioral disorders; G47.00 Insomnia, unspecified; T17.928A Food in respiratory tract, part unspecified causing other injury, initial encounter; W44.F3XA Food entering into or through a natural orifice, initial encounter; Y93.89 Activity, other specified; Y92.039 Unspecified place in apartment as the place of occurrence of the external cause; Z53.29 Procedure and treatment not carried out because of patient's decision for other reasons; J18.9 Pneumonia, unspecified organism
CPT/HCPCS: 36415; 36600; 71045; 76705; 83605; 83735; 84100; 84484; 85025; 85730; 87040; 93005; 93307; 94640; 94760; A4606; A4663; G0378; J0696; J1650; J2060; J3370; J3490; J3590; J7040; J7042